=== PATIENT | female | born 1990 | race Caucasian/White ===

== ENCOUNTER 2016-12-15 15:47 | Emergency (ER) | payer BC ==
[~2016-12-15] VITALS: Ht 175.3 cm; Wt 68.0 kg
[2016-12-15 16:04] VITALS: BP 119/82
[2016-12-15] MEDS ORDERED: Norco 5mg/325mg tab ORAL ONE (16:15)
[2016-12-15] MEDS ORDERED: IBUPROFEN600 MG ORAL (17:13)
[2016-12-15] MEDS ORDERED: TRAMADOL HCL50 MG ORAL (17:13)
[2016-12-15 17:18] VITALS: BP 119/82
--- NOTE | 2016-12-15 17:40 | Emergency Room Report ---
History of Present Illness General Chief Complaint: Pain Source: Patient Present Illness HPI The patient is a 26 yo F presenting for L sided rib pain which began yesterday. She states that she was playing basketball and may have been struck in the ribs. Pain is a 7/10 dull ache and worse with movement and deep breaths. Does not radiate. She denies previous injury to the area. She denies any other symptoms including N, V, F, chills, abd pain, back pain, dysuria, SOB, cough Allergies: Coded Allergies: No Known Allergies (Unverified , 12/15/16) Patient History Past Medical History: see triage record Pertinent Family History: none Now: No Reviewed Nursing Documentation: PMH: Agreed, PSxH: Agreed Nursing Documentation-PMH Past Medical History: No Stated History Hx Hypertension: No - ACL SURGERY 2016 RT KNEE Review of Systems All Other Systems: negative except mentioned in HPI Physical Exam Vital Signs Date Time Temp Pulse Resp B/P Pulse Ox O2 Delivery O2 Flow Rate FiO2 12/15/16 15:51 98.2 81 20 119/82 98 Room Air Sp02 EP Interpretation: reviewed, normal General Appearance: no apparent distress, alert, GCS 15, non-toxic Head: normocephalic, atraumatic Eyes: bilateral eye PERRL, bilateral eye normal inspection ENT: hearing grossly normal, normal pharynx, no angioedema, normal voice Respiratory: chest non-tender, lungs clear, normal breath sounds, no wheezing, speaking full sentences Cardiovascular #1: regular rate, rhythm, no edema Gastrointestinal: normal bowel sounds, non tender, soft, non-distended, no guarding, no rebound Musculoskeletal: tender - TTP over the L anterior distal ribs Neurologic: alert, oriented x3, responsive, motor strength/tone normal, sensory intact, speech normal Psychiatric: judgement/insight normal, memory normal, mood/affect normal, no suicidal/homicidal ideation Skin: normal color, no rash, warm/dry, well hydrated Medical Decision Making PA Attestation Dr. Camargo is my supervising physician. Patient management was discussed with my supervising physician Diagnostic Impression: Primary Impression: Contusion of rib on left side Qualified Codes: S20.212A - Contusion of left front wall of thorax, initial encounter ER Course The patient is a 26 yo F presenting for L sided rib pain Ddx considered include but not limited to sprain/strain, fracture, contusion PE: vitals WNL. NAD RRR. Lungs CTA bilat TTP over the anterior L distal ribs. No flail chest. No ecchymosis. She is given pain medication Xray is unremarkable. She is DC'ed home with prescription for pain medication. ER precautions given Other X-Ray Diagnostic Results Other X-Ray Diagnostic Results : X-Ray ordered: L rib series # of Views/Limited Vs Complete: Complete - 6 view Indication: Pain EP Interpretation: Yes Interpretation: no dislocation, no soft tissue swelling, no fractures Impression: No acute disease Interpreting ER Provider: Dr. Camargo Last Vital Signs Date Time Temp Pulse Resp B/P Pulse Ox O2 Delivery O2 Flow Rate FiO2 12/15/16 17:18 98.2 67 20 119/82 98 Room Air Status: improved Disposition: HOME, SELF-CARE Condition: Improved Scripts Tramadol Hcl* (ULTRAM*) 50 Mg Tablet 50 MG ORAL Q6H Y for For Pain, #12 TAB 0 Refills Prov: SILVANA IVAN P.A. 12/15/16 Ibuprofen* (MOTRIN*) 600 Mg Tablet 600 MG ORAL Q8H Y for For Pain, #30 TAB 0 Refills Prov: SILVANA IVAN P.A. 12/15/16 Patient Instructions: Rib Contusion Additional Instructions: I discussed my findings with the patient. All questions and concerns have been answered. Treatment and medication compliance have been addressed. I advised the patient that they need to follow up with PMD in 3-5 days. Return to ED if pain remains or worsens, numbness or tingling occurs, new rash is noticed, fever is noticed, or if needed for any reason. Patient verbalized understanding of discharge instructions. SILVANA IVAN Dec 15, 2016 17:40
--- NOTE | 2016-12-16 13:38 | Diagnostic Imaging Report ---
Indication: PAIN lower left lateral chest pain Technique: One view of the chest, multiple views of the left ribs Comparison: None Findings: No evidence of acute fracture. No gross pneumothorax. Lungs and pleural spaces are clear. There is cervical lumbar scoliotic deformity. Heart size is normal. Impression: No acute bony trauma or other acute abnormality Thoracic scoliosis
== END 2016-12-15 17:27 | disposition home or self-care (01) ==
LOC: EMR 16:00
DX: S20.212A Contusion of left front wall of thorax, initial encounter (principal); Y93.67 Activity, basketball; Y92.89 Other specified places as the place of occurrence of the external cause
CPT/HCPCS: 99284